=== PATIENT | female | born 1965 | race Caucasian/White ===

== ENCOUNTER 2019-06-01 08:11 | Day surgery (SDC) | payer OTHER ==
[2019-06-01] MEDS ORDERED: Mastisol Adhesive Liq ONE (08:15)
[2019-06-01] MEDS ORDERED: NS 0.9% VIAL 20 ML ONE (08:15)
[2019-06-01] MEDS ORDERED: GENTAMICIN SULF 80 MG/2ML INJ ONE (08:15)
[2019-06-01] MEDS ORDERED: Ringers Lactate 1,000 ML IV ONE ×3 (08:15→08:36)
[2019-06-01] MEDS ORDERED: CEFAZOLIN SODIUM 1 GM/VIAL ONE (08:15)
[2019-06-01] MEDS ORDERED: BACITRACIN 50000 UNIT VIAL ONE (08:16)
[2019-06-01] MEDS ORDERED: NS 0.9% VIAL 10 ML ONE ×2 (08:22→11:33)
[2019-06-01] MEDS ORDERED: FENTANYL CITR 250 MCG/5 ML ONE ×2 (08:22→13:11)
[2019-06-01] MEDS ORDERED: dexAMETHasone 10 MG/ML VIAL ONE (08:22)
[2019-06-01] MEDS ORDERED: propofoL 200 MG/20 ML VIAL IV ONE (08:22)
[2019-06-01] MEDS ORDERED: MIDAZOLAM HCL 2 MG/2 ML INJ ONE (08:22)
[2019-06-01] MEDS ORDERED: LIDOCAINE 1% MPF 5 ML VIAL ONE (08:22)
[2019-06-01] MEDS ORDERED: ONDANSETRON 4 MG/2 ML VIAL ONE ×2 (08:22→13:14)
[2019-06-01] MEDS ORDERED: VECURONIUM 10 MG/VIAL IV ONE (08:23)
--- OUTSIDE RECORDS SUMMARY | 2019-06-01 08:23 | XMS REPORT ---
:1965 [facility] Address [address] [place] [address] Dr. Hadley [address] [place] [id number] Care Team Providers Name Role Phone Hammad Arreola Unavailable Unavailable Problems This patient has no known problems. Allergies, Adverse Reactions, Alerts This patient has no known allergies or adverse reactions. Medications This patient has no known medications. Encounters Start End Encounter Admission Attending Care Care Encounter Date/Time Date/Time Type Type Clinicians Facility Department ID 2018-07-13 2018-07-13 Outpatient ERASMO Arreola [id number] 15:41:00 15:41:00 Hammad 2017-08-11 2017-08-11 Outpatient ERASMO Arreola [id number] 14:16:00 14:16:00 Hammad 2017-03-10 2017-03-10 Outpatient ERASMO Arreola [id number] 08:43:00 08:43:00 Gene 2017-03-03 2017-03-03 Outpatient ERASMO Arreola [id number] 07:56:00 07:56:00 Hammad
--- OUTSIDE RECORDS SUMMARY | 2019-06-01 08:23 | XMS REPORT | Summary of Care ---
:1965 Author Name JORY FUENTES M.D. Address Unavailable Unavailable , Care Team Providers Name Role Phone GINA Crain, JORY Unavailable Unavailable LOGAN CAMPOS MD Unavailable Unavailable GINA ALDRICH UT, JORY Unavailable Unavailable MARK ANTHONY FOWLER, HANNAH Troy Unavailable Unavailable Unavailable Unavailable Unavailable Functional Status Name Dates Details Functional status health issues are not documented Status: Name Dates Details Cognitive status health issues are not documented Status: Problems Name Dates Details Abnormal thyroid function test (794.5, R94.6) Status: Active Diffuse papular eruption (782.1, R21) Status: Active Medications Name Dates Details Nestor Aspirin EC Low Dose 81 MG Oral Tablet Delayed Release TAKE 1 TABLET DAILY. Refills: 0 Active Triamcinolone Acetonide 0.1 % External Lotion APPLY SPARINGLY TO AFFECTED AREA(S) TWICE DAILY, no more than 5-7 days Quantity: 3 Refills: 0 GINA Crain, POURAN Start : 19-Feb-2019 End : 24-Feb-2019 Active 60 ML Bottle hydrOXYzine HCl - 25 MG Oral Tablet 1 tablet q 6 hours as needed for pruritus. Quantity: 60 Refills: 1 GINA Crain, POURAN Start : 19-Feb-2019 End : 31-Mar-2019 Active Allergies and Adverse Reactions Name Dates Details No Known Drug Allergies (Allergy) Status: Active Past Medical History Name Dates Details History of Abnormal urine finding (791.9, R82.90) Status: Resolved History of Acute cognitive decline (799.52, R41.841) Status: Resolved History of Acute memory impairment (780.93, R41.3) Status: Resolved History of Acute upper respiratory infection (465.9, J06.9) Status: Resolved History of Callus of foot (700, L84) Status: Resolved History of cholelithiasis (V12.79, Z87.19) Status: Resolved History of Colon cancer screening (V76.51, Z12.11) Status: Resolved History of Dermatitis of eyelid of right eye (373.31, H01.9) Status: Resolved History of Itch of right eye (379.99, H57.89) Status: Resolved History of Left foot pain (729.5, M79.672) Status: Resolved History of Need for Tdap vaccination (V06.1, Z23) Status: Resolved History of Onychomycosis of toenail (110.1, B35.1) Status: Resolved History of seizure (V12.49, Z87.898) Status: Resolved History of shingles (V12.09, Z86.19) Status: Resolved Procedures Procedure Dates Details History of Cholecystectomy Laparoscopic Completed History of Section Completed History of Foot Surgery Completed Immunization Name Dates Details Tdap (Boostrix) on: 07-Nov-2015 Lot #: [id number] Family History Name Dates Details Family history of malignant neoplasm of breast (V16.3, Z80.3) Status: Active Social History Name Dates Details - Status: Name Dates Details Never smoker Vital Signs Date Test Result Details [id number] Physical Findings 0 Status: Comments: PHQ-9 Adult Depression Screening Physical Findings 0 Status: Comments: Alcohol Screen - How many times in the past yr have you had 5 (for M) or 4 (for F) or 4 (for all > 65yrs) or more drinks in a day? [id number] BP Systolic 124 mm[Hg] Status: BP Diastolic 81 mm[Hg] Status: Height 64 in Status: Weight 139.375 lb Status: Body Mass Index Calculated 23.92 kg/m2 Status: Body Surface Area Calculated 1.68 m2 Status: Temperature 98.1 f Status: Heart Rate 78 /min Status: Results Date Description Value Details Results not documented Plan of Care Name Dates Details Planned Observations Planned Goals not documented Interventions Provided Medication ChangeshydrOXYzine HCl - 25 MG Oral Tablet - StartTriamcinolone Acetonide 0.1 % External Lotion - StartDiscussion/SummaryLISA KRYSTIAN is a 53 year old with new onset papular eruptions in a systemic pattern. There are no interdigital burrows, there are no Koebner lines. I suspect a systemic rash. Continue on oral prednisone. Trial of Atarax for night pruritus. Trial of topical steroid per order. If symptoms worsens or fail to resolve, consult [facility] ( she is an established patient with them). Return to the clinic as needed new symptoms. Instructions Name Dates Details Instructions not documented Encounters Appointment; KARLA RIOJAS NP On: 25-Feb-2017 12:40 Encounter Diagnosis: Problem not documented Appointment; KO LEMA M.D. On: 17-Mar-2017 11:30 Encounter Diagnosis: Problem not documented Appointment; KO LEMA M.D. On: 25-Mar-2017 13:00 Encounter Diagnosis: Problem not documented Appointment; KO LEMA M.D. On: 15-May-2017 14:00 Encounter Diagnosis: Problem not documented Appointment; BEVERLY PACK, PHD On: 24-Jul-2017 8:45 Encounter Diagnosis: Problem not documented Appointment; HANNAH HOPSON DPM On: 28-Jul-2018 16:00 Encounter Diagnosis: Problem not documented Appointment; LOGAN CAMPOS M.D. On: 13-Nov-2018 15:00 Encounter Diagnosis: Problem not documented Appointment; JORY FUENTES M.D. On: 19-Feb-2019 11:00 Encounter Diagnosis: Problem not documented
[2019-06-01] MEDS ORDERED: CEFAZOLIN/SWI 1gm 1 GM/10 ML SYR ONE (08:36)
[2019-06-01] MEDS ORDERED: SCOPOLAMINE HYDROBROMIDE PATCH TD ONE ×2 (08:36→08:40)
--- NOTE | 2019-06-01 08:38 | RAD REPORT ---
EXAM DESCRIPTION: RAD - Chest Pa And Lat (2 Views) - 06/01/2019 8:11 am CLINICAL HISTORY: preop Chest pain. COMPARISON: No comparisons FINDINGS: The lungs are clear. The heart is normal in size. No displaced fractures. IMPRESSION: No acute or concerning finding suspected.
[2019-06-01] MEDS ORDERED: EPHEDRINE SULF 50 MG/ML VIAL ONE (11:09)
--- NOTE | 2019-06-01 12:26 | EKG ---
Test Date: 2019-06-01 Test Time: 07:51:45 Cataloging Assistant: TRAN MEASUREMENT RESULTS: Intervals: Rate: 68 LA: 154 QRSD: 78 QT: 392 QTc: 416 Weiner: P: 67 LA: 154 QRS: 76 T: 33 INTERPRETIVE STATEMENTS: Normal sinus rhythm Low voltage QRS Borderline ECG No previous ECG available for comparison Electronically Signed On 06-01-19 12:26:17 MACHINE CARTON MARKER by Armando Corona
[2019-06-01] MEDS ORDERED: KETOROLAC 30 MG/ML INJ ONE (13:13)
[2019-06-01] MEDS ORDERED: GLYCOPYRROLATE 0.2 MG/ML SYR ONE (13:13)
[2019-06-01] MEDS ORDERED: NEOSTIGMINE 1 MG/ML -5 ML ONE (13:14)
[2019-06-01 14:36] VITALS: TEMP 97.9
[2019-06-01] MEDS ORDERED: CODEINE 30MG/APAP 300MG TAB ONE (15:46)
[2019-06-01 16:02] VITALS: BP 114/50; O2SAT 98
--- NOTE | 2019-06-02 00:58 | OP ---
Surgeon: Tejas Carrington MD Road Cleaner: Cali. Preoperative Diagnosis: Breast descent, asymmetry, enlargement. Postoperative Diagnosis: Breast descent, asymmetry, enlargement. Procedure: Lift and minimal reduction. Anesthesia: General. Procedure In Detail: After satisfactory induction of general anesthesia, chest was prepped with Dura Prep, dry sterile drapes were applied in the usual manner. A 50 mm template was used to outline the right and left areolas. Incision was made with scalpel, transverse and curvilinear inferior incision made. The skin was de-epithelialized with dermabrader and EpiCut. Then the flap was elevated 1.1 c m thickness, cephalad and then dissected towards the clavicle, anterior axillary line, and sternum. Both sides were done simultaneously. Then the left side was dissected first, the patient had de-epithelized tissue formed into a cone with 2-0 PDS sutures. Straps were elevated at 12 o'cloc k, 10:30, and 9 o'clock position. The straps were then woven in and out the pectoralis major muscle, back to base of the cone, back to base of the pectoralis muscle, back to base of cone, and then tied to themselves with 2-0 PDS sutures. This was done from the 12 o'clock and 9 o'clock stra p was sewn over the sternum at the 9 o'clock position with 2-0 Ethibond. Left side was done, then th e left side done in a mirror image manner, however, prior to conization on the right side approximate ly 100 g of breast tissue was removed. The patient then had wounds stapled shut. Excess tissue was marked out, and dog ear was resected and then the patient was placed supine. Right side was closed f irst. The wound was irrigated with antibiotic solution. A 10 KIRSTEN brought out the axilla and sewn in place with 2-0 silk, later closure consisted of 3-0 Vicryl and subcu 3-0 PDS running subcuticular tie d in the vertical meridian breast. Left side was done next in the identical manner and then patient was sat up. Site for new nipple-areolar complex was marked out. The tissue was cored out with 15 mm template. Nipple was delivered, sewn with interrupted PDS, followed by 4-0 PDS running s ubcuticular. Dressings of tincture of benzoin, Steri-Strips, 5 x 5s, fluffs, and Best wrap. Patient tolerated the procedure well and returned to recovery room. The amount removed from the right breast was , left breast 146 g. SRINI/BOBBY Voice ID: [id number] Report ID: [id number]
== END 2019-06-01 16:45 | disposition home or self-care (01) ==
LOC: OR 08:11
PROVIDERS: ATTEND Specialist
PROC: 0H0V0ZZ Alteration of Bilateral Breast, Open Approach (ICD-10-PCS; 2019-06-01)
PROC: 0H0V0ZZ Alteration of Bilateral Breast, Open Approach (ICD-10-PCS; principal; 2019-06-01 09:00)
DX: N64.81 Ptosis of breast (principal); N62 Hypertrophy of breast; N64.89 Other specified disorders of breast
CPT/HCPCS: 93005; 81025; 88305; 71046; 19316; 19318; J2704; J1580; J2250; J3010 ×2; J1100; J2710; J0690 ×2; J7120 ×3; J2405 ×2